=== PATIENT | female | born 1945 | race Caucasian/White ===

== ENCOUNTER 2019-11-16 13:02 | Outpatient (CLI) | payer MEDICARE | END 2019-11-16 23:59 | disposition home or self-care (01) | LOC: CFH 13:02 | PROVIDERS: ATTEND Family Medicine | DX: R92.2 Inconclusive mammogram (principal); N64.89 Other specified disorders of breast | CPT/HCPCS: 76642; 77065 ==

== ENCOUNTER 2019-11-23 08:18 | Outpatient (CLI) | payer MEDICARE ==
[2019-11-23] MEDS ORDERED: LIDOCAINE 1%, 20ML ONE (08:30)
[2019-11-23] MEDS ORDERED: SODIUM BICARBONATE 4.2%, 5ML ONE (08:30)
[2019-11-23] MEDS ORDERED: LIDOCAINE 1%-EPI 1:100K, 20ML ONE (08:30)
== END 2019-11-23 23:59 | disposition home or self-care (01) ==
LOC: CFH 08:18
PROVIDERS: ATTEND Family Medicine
DX: N63.21 Unspecified lump in the left breast, upper outer quadrant (principal); C50.912 Malignant neoplasm of unspecified site of left female breast; N64.89 Other specified disorders of breast
CPT/HCPCS: 19083; 77065; 88305; 88361; J3490; 19285

== ENCOUNTER → 2019-12-26 | Outpatient (CLI) | payer MEDICARE ==
[~2019-12-26] MED LIST: BENA20TA54 PO; DRON400T PO; HYDROCHLOROTH12.5 MG PO; METO50TA82 PO; RIVA20TA PO
[2019-12-26 11:02] LABS: ALANINE AMINOTRANSFERASE 27 U/L (12-78); ALBUMIN 3.4 g/dL (3.4-5.0); ANION GAP 6 mmol/L (5-15); CALCIUM 8.7 mg/dL (8.5-10.1); CHLORIDE 106 mmol/L (98-107); CREATININE 1.19 mg/dL (0.55-1.02)
[2019-12-26 11:05] LABS: ALKALINE PHOSPHATASE 51 U/L (45-117); BILIRUBIN,TOTAL 0.7 mg/dL (0.2-1.0); TOTAL PROTEIN 7.2 g/dL (6.4-8.2)
== END | disposition home or self-care (01) ==
LOC: STAR 09:30
PROVIDERS: ATTEND Surgery
DX: Z01.818 Encounter for other preprocedural examination (principal); Z90.12 Acquired absence of left breast and nipple
CPT/HCPCS: 36415; 80053; 93005

== ENCOUNTER 2019-12-31 06:59 | Day surgery (SDC) | payer MEDICARE ==
[~2019-12-31] VITALS: Ht 162.6 cm; Wt 109.2 kg
[2019-12-31] MEDS ORDERED: LACTATED RINGERS 1,000 ML IV SCH (07:12)
[2019-12-31] MEDS ORDERED: GABAPENTIN 300 MG CAPSULE PO ONE (07:30)
[2019-12-31] MEDS ORDERED: ACETAMINOPHEN 500 MG TABLET PO ONE (07:30)
[2019-12-31] MEDS ORDERED: MEPERIDINE/PF 25MG/ML,1ML IVPush PRN (08:00)
[2019-12-31] MEDS ORDERED: METOPROLOL 1 MG/ML, 5ML IV PRN (08:00)
[2019-12-31] MEDS ORDERED: OXYcodone 5 MG/5 ML ORAL.SOL UDC PO PRN (08:00)
[2019-12-31] MEDS ORDERED: HYDROmorphone 2 MG/ML, 1ML IVPush PRN (08:00)
[2019-12-31] MEDS ORDERED: LABETALOL 5MG/ML, 20ML IV PRN (08:00)
[2019-12-31] MEDS ORDERED: PROMETHAZINE 25 MG/ML, 1ML IV PRN (08:00)
[2019-12-31] MEDS ORDERED: HALOPERIDOL 5 MG/ML IV PRN (08:00)
[2019-12-31] MEDS ORDERED: FENTANYL PF 100 MCG/2ML IV PRN (08:00)
[2019-12-31] MEDS ORDERED: hydrALAzine 20 MG/ML, 1ML IV PRN (08:00)
[2019-12-31 08:03] VITALS: BP 123/83
[2019-12-31] MEDS ORDERED: MIDAZOLAM 1 MG/ML, 2ML ONE (08:10)
[2019-12-31] MEDS ORDERED: FENTANYL PF 250 MCG/5ML ONE (08:10)
[2019-12-31] MEDS ORDERED: ISOSULFAN BLUE 10 MG/ML, 5ML IV ONE (08:52)
[2019-12-31] MEDS ORDERED: EPINEPHRINE 1 MG/ML, 1ML ONE (08:52)
[2019-12-31] MEDS ORDERED: BUPIVACAINE/PF 0.5% ONE (08:52)
[2019-12-31] MEDS ORDERED: PROPOFOL 10 MG/ML, 20ML ONE (09:00)
[2019-12-31] MEDS ORDERED: SUCCINYLCHOLINE 20 MG/ML, 10ML ONE (09:00)
[2019-12-31] MEDS ORDERED: CEFAZOLIN 1,000 MG ONE (09:00)
[2019-12-31] MEDS ORDERED: ROCURONIUM 10MG/ML,5ML ONE (09:00)
[2019-12-31] MEDS ORDERED: ONDANSETRON 2MG/ML, 2ML ONE (09:00)
[2019-12-31] MEDS ORDERED: DEXAMETHASONE 4 MG/ML, 1ML ONE (09:00)
[2019-12-31] MEDS ORDERED: PHENYLEPHRINE 10 MG/ML ONE (09:00)
== END 2019-12-31 12:22 | disposition home or self-care (01) ==
LOC: OUT 06:59
PROVIDERS: ATTEND Surgery
DX: C50.412 Malignant neoplasm of upper-outer quadrant of left female breast (principal); I48.91 Unspecified atrial fibrillation; I10 Essential (primary) hypertension; E66.01 Morbid (severe) obesity due to excess calories; Z17.0 Estrogen receptor positive status [ER+]; Z68.41 Body mass index [BMI] 40.0-44.9, adult; Z79.01 Long term (current) use of anticoagulants; Z79.899 Other long term (current) drug therapy; Z95.0 Presence of cardiac pacemaker; Z82.3 Family history of stroke
CPT/HCPCS: 19301; 38525; 38900; 76098; 88307; 88329; J0171; J0330; J0690; J1100; J2250; J2370; J2405; J2704; J3010; J7120

== ENCOUNTER 2020-01-01 08:00 | Outpatient (CLI) | payer MEDICARE | END 2020-01-01 23:59 | disposition home or self-care (01) | LOC: RAD 08:00 | PROVIDERS: ATTEND Surgery | DX: Z02.9 Encounter for administrative examinations, unspecified (principal) | CPT/HCPCS: 38792; A9541 ==

== ENCOUNTER 2020-01-24 07:55 | Outpatient (CLI) | payer MEDICARE | END 2020-01-24 23:59 | disposition home or self-care (01) | LOC: ROC 07:55 | PROVIDERS: ATTEND Radiology Radiation Oncology | DX: C50.212 Malignant neoplasm of upper-inner quadrant of left female breast (principal) | CPT/HCPCS: 99214; G0463 ==

== ENCOUNTER → 2020-11-24 | Outpatient (CLI) | payer MEDICARE | END | disposition home or self-care (01) | LOC: CFH 10:03 | PROVIDERS: ATTEND Pathology Hematology | DX: Z12.31 Encounter for screening mammogram for malignant neoplasm of breast (principal) | CPT/HCPCS: 77067 ==